=== PATIENT | female | born 1980 | race Caucasian/White ===

== ENCOUNTER 2019-03-09 10:19 | Day surgery (SDC) | payer BC, SELFPAY ==
--- NOTE | 2019-02-24 10:48 | HP.PCM_ITS ---
History and Physical Date of Admission: 02/24/19 Pre-Op History and Physical ? HPI: The patient is a 38 year old female presenting for pre-operative visit. She is scheduled for?Hysteroscopy D&C?with Mirena insertion?and Laparosocpy?with left salpingo-oophorectomy and right salpingectomy, for?chronic left lower quadrant pain, menorrhagia and dysmenorrhea on?03/09/19. ??Procedure discussed along with risks, benefits and complications. ?Other alternatives discussed for management. Consent form signed??Yes.? PAST?MEDICAL?HISTORY PAST MEDICAL HISTORY Diagnosis Date ? Bipolar Affective Disorder 06/10/2009 ? Daytime hypersomnolence 05/30/2015 ? Depression ? ? H/O total thyroidectomy 05/28/2014 ? Hyperthyroidism 05/09/2014 ? Thyroid scan in 04/2014 showed large cold defect in left lobe, homogeneous uptake otherwise but only 2% at 24 hours. ? Medication overuse headache 08/05/2016 ? Multinodular goiter 04/17/2014 ? Thyroid ultrasound 04/03/2014 showed numerous tiny (4-5 mm each) nodules within the right lobe. ?Left lobe shows a 4.0 x 2.0 x 2.0 cm predominantly solid mass. Either within or possibly extraneous to the posterior lower pole aspect of the left lobe is an 8 mm circumscribed hypoechoic solid nodule. ? MVP (mitral valve prolapse) ? ? Postsurgical hypothyroidism 05/08/2014 ? Thyroid cancer (HCC) 06/06/2014 ? multifocal micropapillary, no 131-iodine needed ? Tibialis posterior tendinitis 05/10/2012 ? ? PAST?SURGICAL?HISTORY PAST SURGICAL HISTORY Procedure Laterality Date ? ; THYROIDECTOMY TOTAL OR COMPLETE ? 05/2014 ? PAST SURGICAL HISTORY OF ? ? ? cardiac ablasion ? RECONSTRUCTION PLATE OF NASAL BONES ? 1994 ? SHLDR ARTHROSCOP,PART ACROMIOPLAS Right 12/28/2018 ? Right shoulder arthroscopy with subacromial decompression ? TONSILLECTOMY HX ? ? ? TUBAL LIGATION, ? 06/2006 ? UMBILICAL HERNIA REPAIR 5 OR OLDER ? 1999 ? ? CURRENT?MEDICATIONS Current Outpatient Medications Medication Sig Dispense Refill ? buPROPion XL (WELLBUTRIN XL) 150 mg 24 hr tablet Take 1 tablet by mouth once daily. 30 tablet ? ? acetaminophen (TYLENOL EXTRA STRENGTH) 500 mg tablet Take 1,000 mg by mouth every 8 hours as needed. ? ? ? lamoTRIgine (LAMICTAL) 100 mg tablet once daily. ? 0 ? topiramate (TOPAMAX) 100 mg tablet Take 1 tablet by mouth twice daily. 60 tablet 5 ? SUMAtriptan (IMITREX STATDOSE PEN) 6 mg/0.5 mL kit 1 injection at migraine onset. May repeat once in 2 hours. Give max allowed per insurance. 8 Each 5 ? levothyroxine (SYNTHROID) 150 mcg tablet Take 1 tablet by mouth once daily. 90 tablet 3 ? ALPRAZolam (XANAX) 0.5 mg tablet Take 1 tablet by mouth twice daily as needed. (Patient taking differently: Take 0.25 mg by mouth twice daily as needed for Anxiety. ) 30 tablet 0 ? No current facility-administered medications for this visit.? ? ALLERGIES:?Bactrim [Sulfamethoxazole-Trimethoprim]; Codeine; Darvocet-N 100 [Propoxyphene N-Acetaminophen]; Latex ? PERSONAL HISTORY:? SOCIAL?HISTORY Social History ??Socioeconomic History ?Marital status: ?Spouse name: Francisco ?Number of children: 3 ?Years of education: 12 ?Highest education level: Not on file ??Occupational History ?Occupation: Homemaker ??Social Needs ?Financial resource strain: Not on file ?Food insecurity: ?Worry: Not on file ?Inability: Not on file ?Transportation needs: ?Medical: Not on file ?Non-medical: Not on file ??Tobacco Use ?Smoking status: Former Smoker ?Packs/day: 0.50 ?Types: Cigarettes ?Quit date: 05/21/2014 ?Years since quittin.7 ?Smokeless tobacco: Never Used ?Tobacco comment: no longer smoking. ??Substance and Sexual Activity ?Alcohol use: No ?Drug use: No ?Sexual activity: Yes ?Partners: Male ? control/protection: Tubal Ligation ??Lifestyle ?Physical activity: ?Days per week: Not on file ?Minutes per session: Not on file ?Stress: Not on file ??Relationships ?Social connections: ?Talks on phone: Not on file ?Gets together: Not on file ?Attends latter day service: Not on file ?Active member of club or organization: Not on file ?Attends meetings of clubs or organizations: Not on file ?Relationship status: Not on file ?Intimate partner violence: ?Fear of current or ex partner: Not on file ?Emotionally abused: Not on file ?Physically abused: Not on file ?Forced sexual activity: Not on file ??Other Topics ?Concerns: ? Service: Not Asked ?Blood Transfusions: Not Asked ?Caffeine Concern: Yes ?Occupational Exposure: Not Asked ?Hobby Hazards: Not Asked ?Sleep Concern: Not Asked ?Stress Concern: Not Asked ?Weight Concern: Not Asked ?Special Diet: No ?Back Care: Not Asked ?Exercise: No ?Bike Helmet: Not Asked ?Seat Belt: Not Asked ?Self-Exams: Not Asked ??Social History Narrative ?Not on file ? FAMILY HISTORY:? FAMILY?HISTORY FAMILY HISTORY Problem Relation Age of Onset ? Thyroid Mother ?cancer ? Clotting Disorder Mother ?pulmonary emboli in 2011 ? Asthma Mother ? ? other (Migraine) Mother ?Possible ? No Known Problems Father ? ? other (Migraine) Sister ?Half-sister ? Asthma Sister ? ? Hearing Loss Maternal Grandmother ? ? Asthma Maternal Grandmother ? ? Heart Maternal Grandfather ? ? Cancer Maternal Grandfather ? ? other (Migraine) Daughter ? ? Asthma Brother ? ? Asthma Son ?As an ? REVIEW OF SYMPTOMS: GENERAL: denies fevers or chills ENDOCRINOLOGY: has not been on steroids Cardiology : denies palpitations or chest pain Respiratory: denies SOB or cough Hematology: denies history of prolonged bleeding or easy bruising or VTE Allergy: Denies history of personal or family history of allergy to anesthesia ? ? PHYSICAL EXAMINATION: ? VITALS:?Blood pressure 118/68, height 5' 5.5 (1.664 m), weight 197 lb (89.4 kg), last menstrual period 01/30/2019. ? GENERAL:??The patient is well nourished, well hydrated in no acute distress. ?, The patient is oriented to time, place, and person. NECK:?Supple. No lynphadenopathy, normal thyroid, no thyromegaly. LUNGS:?Clear to auscultation bilaterally. no wheezes, rhonchi or rales HEART:?Regular rate and rhythm, Normal heart sounds and No murmurs or gallops ? ? IMPRESSION:?Menorrhagia, dysmenorrhea, chronic left lower quadrant and pelvic pain ? PLAN:???The risks/benefits/alternatives and personal involved for the kevin nned?laparoscopic left salpingo-oophorectomy, right salpingectomy, hysteroscopy with dilation and curettage and Mirena IUD insertion?were reviewed with the patient. Her questions were answered to her satisfaction and she desires to proceed. ?Consent was signed. ?I reviewed with her postop instructions and expectations. ? ? I have reviewed and updated past medical and surgical history, medications and allergies?. this history and physical was completed in my office on February 24, 2018.
[2019-03-09] VITALS (8 sets, daily range): BP systolic 115–132; BP diastolic 77–97; PULSE 70–103; RESP 16; TEMP 36.1–37.2; O2SAT 95–100; BMI 33.3
--- NOTE | 2019-03-09 | OV_PTH ---
PATIENT: MATT PAIGE LOC: [facility] [place] U#:[id number] AGE/SX: 38/F ROOM: RE03/09/[address]: Dr. Rachel Barajas MD : [id number] BED: DIS: 03/09/2019 SPEC #: [id number] RECD: 03/09/19 16:26 STATUS: BLAKE ANGEL #: [id number] ABRAHAM: 03/09/19 00:[address]: Rachel Barajas DEPT: SURGICAL PATHOLOGY RECD BY: Gabriel Ronquillo ENTERED: 03/10/19 09:13 SP TYPE: OVARY OTHR DR: Kim Momin, GAS STATION SERVICE ATTENDANT-C Tissues: Left ovary Procedures: Surgery Specimen Level IV HEADER OPERATION: Diagnostic laparoscopy, left salpingo-oophorectomy, right salpingectomy PRE-OP DIAGNOSIS: Menorrhagia, dysmenorrhea, chronic left lower quadrant and pelvic pain TISSUE SUBMITTED: Left ovary, right tube MICROSCOPIC DIAGNOSIS Bilateral fallopian tubes and left ovary, left salpingo-oophorectomy and right salpingectomy: Bilateral fallopian tube - no pathologic diagnosis. Left ovary - physiologic follicular cysts. SONG:jesus 03/13/19 MICROSCOPIC DESCRIPTION Slides are reviewed. GROSS DESCRIPTION Received in fixative is one container labeled with the patient's name and designated left ovary and right tube. The specimen consists of one fallopian tube identified as right tube and second fallopian tube and ovary identified as left. The right fallopian tube measures 4 cm in length and 0.6 cm in diameter. The fimbrial end is identified. Sections reveal unremarkable cut surfaces. The left ovary measures 3 x 2 x 2 cm. Sections reveal multiple cysts filled with clear fluid. The largest cyst measures 1.5 cm in greatest dimension. The adjacent left fallopian tube measures 5 cm in length and 0.6 cm in diameter. The fimbrial end is identified. Sections reveal unremarkable cut surfaces. Commission Agent Livestock sections are submitted in four cassettes as follows: 1 - right fallopian tube, 2 - left fallopian tube, 3 & 4 - left ovary. / SONG:jesus 03/10/19 TC:5 CPT: 14195 x2
--- NOTE | 2019-03-09 10:32 | EKG12_ITS ---
Test Reason : PRE OP Blood Pressure : / mmHG Vent. Rate : 097 BPM Atrial Rate : 097 BPM P-R Int : 156 ms QRS Dur : 082 ms QT Int : 370 ms P-R-T Axes : 024 012 028 degrees QTc Int : 469 ms Normal sinus rhythm Normal ECG When compared with ECG of 16-JUN-2016 12:05, No significant change was found Confirmed by TOÑO OSMAN [id number]), editorial assistant CHERYL HAMILTON ([id number]) on 03/14/2019 1:32:40 PM Referred By: Rachel Barajas Confirmed By:TOÑO OSMAN
[2019-03-09 10:46] LABS: Hematocrit 39.4 % (37-47); Hemoglobin 12.5 g/dL (12.0-15.0); Mean Corp Hgb Conc 31.7 g/dL (32-36); Mean Corpuscular Hgb 29.3 pg (27.0-32.0); Mean Corpuscular Volume 92.3 fL (81-99); Mean Platelet Vol. 9.3 fl (6.2-12.0); Platelet Count 318 K/mm3 (150-450); RBC Distribution Width SD 43.8 fl (35.1-43.9); Red Blood Count 4.27 M/mm3 (4.2-5.4); White Blood Count 7.9 K/mm3 (4.4-11.0)
[2019-03-09 10:49] LABS: Internal QC Validated? YES +Cl - CLEAR BKGD
[2019-03-09 10:50] LABS: Pregnancy, Urine Negative Negative
[2019-03-09] MEDS: Lactated Ringers 1,000 ML 100 ML IV ×2 (11:07→12:15)
[2019-03-09] MEDS: Acetaminophen 500 MG Tablet 1000 MG PO (11:13)
[2019-03-09] MEDS: Celecoxib 200 MG Capsule PO (11:13)
[2019-03-09] MEDS: Gabapentin 400 MG Capsule PO (11:13)
[2019-03-09 11:14] LABS: Anion Gap 5 (5-15); BUN 11 mg/dL (7-18); BUN/Creat Ratio 11.6 RATIO (10-20); Calcium,Total 8.7 mg/dL (8.5-10.1); Chloride 111 mmol/L (98-107); Creatinine, Serum 0.95 mg/dL (0.55-1.02); EST Glomerular Filtration Rate 70 mL/min (>60); Est Glom Filt Rate - Afr Amer 84 mL/min (>60); Estimated Creatinine Clearance 68.65 ml/min; Glucose 98 mg/dL (74-106); Potassium 3.5 mmol/L (3.5-5.1); Sodium Level 139 mmol/L (136-145); Thyroid Stim Hormone (TSH) 0.88 uIU/mL (0.358-3.74)
[2019-03-09] MEDS: Bupivacaine Mpf 0.5% 30 ML VIAL (12:30)
--- NOTE | 2019-03-09 13:23 | PCM.DC.D&C ---
Discharge Diet: No Restrictions Discharge Activity: Return to Normal Activity, May Shower - 03/10/19, May Take a Tub Bath - in 2 weeks. Call your doctor if your incision/area has: Sudden Increased Bleeding, Foul Smelling Discharge, Swelling at the incision site Call your doctor if you observe: Fever of 101 or Higher, Uncontrolled pain Cleanse incision/area with: Soap & Water, - - your incisions have skin glue, it can get wet Instructions: Hysteroscopy Allergies/Adverse Reactions: Allergies adhesive Allergy (Verified 03/09/19 10:58) Itching codeine Allergy (Verified 03/09/19 10:58) Hives propoxyphene napsylate [From Darvocet-N] Allergy (Verified 03/09/19 10:58) Hives sulfamethoxazole [From Bactrim] Allergy (Verified 03/09/19 10:58) Hives trimethoprim [From Bactrim] Allergy (Verified 03/09/19 10:58) Hives Medications to take at Discharge ALPRAZolam [Xanax] 0.5 mg PO DAILY PRN PRN 05/21/14 Levothyroxine Sodium [Levoxyl] 150 mcg PO DAILY 05/21/14 Cholecalciferol (Vitamin D3) [Vitamin D3] 50,000 unit PO QWEEK 03/07/19 Lamotrigine [Lamictal] 200 mg PO QHS 03/07/19 Sumatriptan [Imitrex] 6 mg SUBCUT .X1 PRN 03/07/19 Topiramate [Topamax] 200 mg PO QHS 03/07/19 buPROPion SR [Wellbutrin SR (150mg tablets)] 150 mg PO QHS 03/07/19 Ibuprofen [Motrin] 600 mg PO Q6H PRN #60 tab 03/09/19 Oxycodone HCl/Acetaminophen [Percocet 5/325] 1 - 2 tablet PO Q8 PRN 4 Days #14 tablet 03/09/19 The following prescriptions were given: Ibuprofen [Motrin] 600 mg PO Q6H PRN #60 tab PRN Reason: Pain Transmission Status: Pending to [facility] Oxycodone HCl/Acetaminophen [Percocet 5/325] 1 - 2 tablet PO Q8 PRN 4 Days #14 tablet PRN Reason: Pain Transmission Status: Sent to [facility] Primary Care Physician: Kim Momin NP-C [Primary Care Provider] - Test Results: Test results from this visit will be discussed in further detail at your follow-up appointment, if applicable. Please Follow Up With: Rachel Barajas MD - [phone] When: 2 weeks or as needed
--- NOTE | 2019-03-09 13:27 | OP.PCM_ITS ---
Report of Operation Date of Procedure: 03/09/19 Pre-Operative Diagnosis: pelvic pain, dysmenorrhea Post-Operative Diagnosis: same, + retroverted, retroflexed uterus Surgery/Procedure Performed:: hysteroscopy, laparascopic right salpingoophorectomy, left salpingectomy Description of Surgical Findings:: reverted retroflexed uterus, normal-appearing cervix and vagina, normal- appearing ovaries bilaterally. Normal-appearing tubes except for previous evidence of tubal ligation from Filshie clips was noted. No significant adhesions or endometriosis. The uterus was so retroflexed that the fundus was essentially sitting on the posterior lower uterine segment. discharging machine operator: Kraig Smith student Type of Anesthesia:: General Anesthesiologist: Alison Briggs Special Medications: none Specimen's removed: Bilateral fallopian tubes, right ovary Drains: None Estimated Blood Loss (mL): 20 Fluids Replaced: 600 Description of Procedure: The patient was taken to the operating room where she was prepped and draped in the dorsolithotomy position. A weighted speculum was placed in the vagina and the anterior lip of the cervix was grasped with a tenaculum. The conn cannula uterine manipulator was placed and the remainder of the instruments were removed from the vagina. Attention was turned to the abdomen. All port sites were infiltrated with 0.5% Marcaine before skin incisions were made. A 5 mm intraumbilical incision was made. The anterior abdominal wall was tented up with 2 towel clamps while a 5 mm blade less trocar and sleeve were directly inserted. Intraperitoneal placement was confirmed with the laparoscope. The pneumoperitoneum was created and the underlying abdominal contents were intact. The patient was placed in Trendelenburg. Right and left lower quadrant ports were placed under direct visualization lateral to the inferior epigastric vessels. The bowel was swept away and the above findings were noted. The LigaSure device was used to clamp seal and transect the antimesenteric portions of the right tube to the cornual insertion of the uterus. The right tube was amputated from the uterus and the pedicles were all confirmed to be hemostatic. The left infundibulopelvic ligament was clamped, sealed and transected with the LigaSure device. I then clamped along drain ligament with the LigaSure, it was clamped, sealed and transected. I met at the tube pedicles, and the fallopian tube and ovary were amputated from the uterus. Umbilical port site was stretched and an Endo Catch bag was placed through the port site and the specimen was placed inside. It was brought out through the umbilical port site. The fascia and this site was closed with an 0 Vicryl [id number] suture. The pedicles were again examined and found to be hemostatic. The lateral ports were removed under direct visualization and no active bleeding was noted. The pneumoperitoneum was released. The skin incisions were closed with Monocryl suture in a subcuticular fashion and skin glue. The vaginal instruments were removed and the vaginal sweep was completed by me. The weighted speculum was placed in the vagina and the anterior lip of the cervix was grasped with a single-tooth tenaculum. An attempt was made to carefully dilate the cervix knowing that the uterus was retroverted and retroflexed. However, despite this, when the hysteroscope was placed it was in a false cavity. I attempted to reposition it. I then removed it and attempted to dilate further, at which point of suspicious they perforated the uterus. I placed the hysteroscope in and found that I had perforated the uterus. The hysteroscope was then removed and the procedure was terminated. All sponge and needle counts were correct. Vaginal sweep was performed by me. The patient was awakened and taken to the recovery room in stable condition. I performed the entire procedure with assistance Hysteroscopic ins: 300cc normal saline Hysteroscopic outs:100cc Findings: Endometrial cavity: Able to be definitively identified Cervix: Normal Vagina: Normal Grafts/Implants Used: none - Complications none - Admit VTE Documentation VTE Present on Admission: No VTE Mechan Device Prophylaxis: SCD's Reason prophylaxis not ordered:: Procedure Not Indicated
[2019-03-09] MEDS: Morphine 4 MG/ML Syringe 6 MG IV (15:20)
== END 2019-03-09 16:06 | disposition home or self-care (01) ==
LOC: SDC 10:20 → AC 10:22
PROVIDERS: Anesthesiology; Family Provider Nurse Practitioner Family; PCP Nurse Practitioner Family; Referring Provider Obstetrics & Gynecology; Visit Provider Obstetrics & Gynecology
PROC: (CPT 49320; principal; 2019-03-09 11:40)
PROC: 0U5B8ZZ Destruction of Endometrium, Via Natural or Artificial Opening Endoscopic (ICD-10-PCS; CPT 58558; 2019-03-09 11:40)
DX: N92.0 Excessive and frequent menstruation with regular cycle (principal); N94.6 Dysmenorrhea, unspecified; I34.1 Nonrheumatic mitral (valve) prolapse; E89.0 Postprocedural hypothyroidism; F31.9 Bipolar disorder, unspecified; F41.9 Anxiety disorder, unspecified; G47.10 Hypersomnia, unspecified; Z79.899 Other long term (current) drug therapy; Z88.2 Allergy status to sulfonamides; Z88.5 Allergy status to narcotic agent; Z85.850 Personal history of malignant neoplasm of thyroid; Z87.891 Personal history of nicotine dependence
CPT/HCPCS: 58661; 36415; 80048; 81025; 84443; 85027; 88305; 93005; J7120; J2405

== ENCOUNTER 2019-04-13 06:10 | Day surgery (SDC) | payer BC, SELFPAY ==
[2019-03-09 10:59] VITALS: BMI 33.3
--- NOTE | 2019-04-08 09:03 | PCM.HP.BLA ---
History and Physical Date of Admission: 04/13/19 HPI: The patient is a 38 year old female presenting for pre-operative visit. She is scheduled for?TVH??, for?menorrhagia, retroflexed uterus and pelvic pain on?04/13/19. ??Procedure discussed along with risks, benefits and complications. ?Other alternatives discussed for management. Consent form signed??Yes.? PAST?MEDICAL?HISTORY PAST MEDICAL HISTORY Diagnosis Date ? Bipolar Affective Disorder 06/10/2009 ? Daytime hypersomnolence 05/30/2015 ? Depression ? ? H/O total thyroidectomy 05/28/2014 ? Hyperthyroidism 05/09/2014 ? Thyroid scan in 04/2014 showed large cold defect in left lobe, homogeneous uptake otherwise but only 2% at 24 hours. ? Medication overuse headache 08/05/2016 ? Multinodular goiter 04/17/2014 ? Thyroid ultrasound 04/03/2014 showed numerous tiny (4-5 mm each) nodules within the right lobe. ?Left lobe shows a 4.0 x 2.0 x 2.0 cm predominantly solid mass. Either within or possibly extraneous to the posterior lower pole aspect of the left lobe is an 8 mm circumscribed hypoechoic solid nodule. ? MVP (mitral valve prolapse) ? ? Postsurgical hypothyroidism 05/08/2014 ? Thyroid cancer (HCC) 06/06/2014 ? multifocal micropapillary, no 131-iodine needed ? Tibialis posterior tendinitis 05/10/2012 ? ? PAST?SURGICAL?HISTORY PAST SURGICAL HISTORY Procedure Laterality Date ? ; THYROIDECTOMY TOTAL OR COMPLETE ? 05/2014 ? HYSTEROSCOPY, DIAGNOSTIC (SEPARATE ? 03/09/2019 ? False tract, then perforation due to shape of uterus ? L'SCOPE REM ADNEX W/PART/TOT OOPH/SALP Left 03/09/2019 ? LSO, right salpingectomy ? PAST SURGICAL HISTORY OF ? ? ? cardiac ablasion ? RECONSTRUCTION PLATE OF NASAL BONES ? 1994 ? SHLDR ARTHROSCOP,PART ACROMIOPLAS Right 12/28/2018 ? Right shoulder arthroscopy with subacromial decompression ? TONSILLECTOMY HX ? ? ? TUBAL LIGATION, ? 06/2006 ? UMBILICAL HERNIA REPAIR 5 OR OLDER ? 2000 ? ? CURRENT?MEDICATIONS Current Outpatient Medications Medication Sig Dispense Refill ? norethindrone (AYGESTIN) 5 mg tablet Take 1 tablet by mouth as directed. ONE PO Q 1 HR UNTIL BLEEDING SLOWS, UP TO 5 TABS TODAY. ?THEN ONE PO QID X 3 DAYS THEN TID X 3 DAYS THEN BID X 3 DAYS THEN ONE QDAY. 40 tablet 1 ? Mefenamic Acid 250 mg cap Take 1 capsule by mouth as directed. take 2 tablets at onset of pain then one tablet q 8 hrs as needed for pain 30 capsule 1 ? buPROPion XL (WELLBUTRIN XL) 150 mg 24 hr tablet Take 1 tablet by mouth once daily. 30 tablet ? ? acetaminophen (TYLENOL EXTRA STRENGTH) 500 mg tablet Take 1,000 mg by mouth every 8 hours as needed. ? ? ? lamoTRIgine (LAMICTAL) 100 mg tablet once daily. ? 0 ? topiramate (TOPAMAX) 100 mg tablet Take 1 tablet by mouth twice daily. 60 tablet 5 ? SUMAtriptan (IMITREX STATDOSE PEN) 6 mg/0.5 mL kit 1 injection at migraine onset. May repeat once in 2 hours. Give max allowed per insurance. 8 Each 5 ? levothyroxine (SYNTHROID) 150 mcg tablet Take 1 tablet by mouth once daily. 90 tablet 3 ? ALPRAZolam (XANAX) 0.5 mg tablet Take 1 tablet by mouth twice daily as needed. (Patient taking differently: Take 0.25 mg by mouth twice daily as needed for Anxiety. ) 30 tablet 0 ? No current facility-administered medications for this visit.? ? ALLERGIES:?Bactrim [Sulfamethoxazole-Trimethoprim]; Codeine; Darvocet-N 100 [Propoxyphene N-Acetaminophen]; Latex ? PERSONAL HISTORY:? SOCIAL?HISTORY Social History ??Socioeconomic History ?Marital status: ?Spouse name: Francisco ?Number of children: 3 ?Years of education: 12 ?Highest education level: Not on file ??Occupational History ?Occupation: Homemaker ??Social Needs ?Financial resource strain: Not on file ?Food insecurity: ?Worry: Not on file ?Inability: Not on file ?Transportation needs: ?Medical: Not on file ?Non-medical: Not on file ??Tobacco Use ?Smoking status: Former Smoker ?Packs/day: 0.50 ?Types: Cigarettes ?Quit date: 05/21/2014 ?Years since quittin.8 ?Smokeless tobacco: Never Used ?Tobacco comment: no longer smoking. ??Substance and Sexual Activity ?Alcohol use: No ?Drug use: No ?Sexual activity: Yes ?Partners: Male ? control/protection: Tubal Ligation ??Lifestyle ?Physical activity: ?Days per week: Not on file ?Minutes per session: Not on file ?Stress: Not on file ??Relationships ?Social connections: ?Talks on phone: Not on file ?Gets together: Not on file ?Attends samaritan service: Not on file ?Active member of club or organization: Not on file ?Attends meetings of clubs or organizations: Not on file ?Relationship status: Not on file ?Intimate partner violence: ?Fear of current or ex partner: Not on file ?Emotionally abused: Not on file ?Physically abused: Not on file ?Forced sexual activity: Not on file ??Other Topics ?Concerns: ? Service: Not Asked ?Blood Transfusions: Not Asked ?Caffeine Concern: Yes ?Occupational Exposure: Not Asked ?Hobby Hazards: Not Asked ?Sleep Concern: Not Asked ?Stress Concern: Not Asked ?Weight Concern: Not Asked ?Special Diet: No ?Back Care: Not Asked ?Exercise: No ?Bike Helmet: Not Asked ?Seat Belt: Not Asked ?Self-Exams: Not Asked ??Social History Narrative ?Not on file ? FAMILY HISTORY:? FAMILY?HISTORY FAMILY HISTORY Problem Relation Age of Onset ? Thyroid Mother ?cancer ? Clotting Disorder Mother ?pulmonary emboli in 2012 ? Asthma Mother ? ? other (Migraine) Mother ?Possible ? No Known Problems Father ? ? other (Migraine) Sister ?Half-sister ? Asthma Sister ? ? Hearing Loss Maternal Grandmother ? ? Asthma Maternal Grandmother ? ? Heart Maternal Grandfather ? ? Cancer Maternal Grandfather ? ? other (Migraine) Daughter ? ? Asthma Brother ? ? Asthma Son ?As an infant ? REVIEW OF SYMPTOMS: GENERAL: denies fevers or chills ENDOCRINOLOGY: has not been on steroids Cardiology : denies palpitations or chest pain Respiratory: denies SOB or cough Hematology: denies history of prolonged bleeding or easy bruising or VTE Allergy: Denies history of personal or family history of allergy to anesthesia ? ? PHYSICAL EXAMINATION: ? VITALS:?Weight 197 lb (89.4 kg), last menstrual period 03/13/2019. ? GENERAL:??The patient is well nourished, well hydrated in no acute distress. ?, The patient is oriented to time, place, and person. NECK:?Supple. No lynphadenopathy, normal thyroid, no thyromegaly. LUNGS:?Clear to auscultation bilaterally. no wheezes, rhonchi or rales HEART:?Regular rate and rhythm, Normal heart sounds and No murmurs or gallops ? ? IMPRESSION:?menorrhagia, chronic pelvic pain, retroflexed uterus ? PLAN:???The risks/benefits/alternatives and personal involved for the planned?TVH?were reviewed with the patient. Her questions were answered to her satisfaction and she desires to proceed. ?Consent was signed. ?I reviewed with her postop instructions and expectations. ? ? I have reviewed and updated past medical and surgical history, medications and allergies. This history and physical was completed in my office on 04/07/2019. Rachel Barajas M.D.
[2019-04-13] VITALS (11 sets, daily range): BP systolic 98–122; BP diastolic 47–81; PULSE 72–106; RESP 12–20; TEMP 36.7–37.1; O2SAT 20–100; BMI 33.3
--- NOTE | 2019-04-13 | HYST_PTH ---
PATIENT: MATT PAIGE LOC: [facility] [place] U#:[id number] AGE/SX: 38/F ROOM: RE04/13/[address]: Dr. Rachel Barajas MD : [id number] BED: DIS: 04/14/2019 SPEC #: [id number] RECD: 04/13/19 12:54 STATUS: BLAKE ANGEL #: [id number] ABRAHAM: 04/13/19 00:[address]: Rachel Barajas DEPT: SURGICAL PATHOLOGY RECD BY: Gabriel Ronquillo ENTERED: 04/13/19 12:54 SP TYPE: HYSTERECT MEAGAN DR: Kim Momin, STUDENT UNION CONSULTANT-C Tissues: Uterus, NOS Procedures: Surgery Specimen Level V HEADER OPERATION: ERAS, vaginal hysterectomy PRE-OP DIAGNOSIS: Menorrhagia, retroflexed uterus and pelvic pain TISSUE SUBMITTED: Uterus and cervix MICROSCOPIC DIAGNOSIS Uterus and cervix, vaginal hysterectomy: Cervix - chronic inflammation Endometrium - secretory endometrium. Myometrium - focal minimal superficial adenomyosis. SJ:jesus 04/14/19 MICROSCOPIC DESCRIPTION Slides are reviewed. GROSS DESCRIPTION Received in fixative is one container labeled with the patient's name and designated uterus. The specimen consists of a uterus with attached cervix without fallopian tubes and ovaries measuring 9.5 x 5 x 4.5 cm and weighing 108 gm. The ectocervix is grossly unremarkable. The cervical os is fish[place] in contour. Instrumentation garland are identified in the anterior and posterior surfaces. The endocervical canal measures 4 cm in length and is grossly unremarkable. The triangular endometrial cavity measures 3.8 x 3.2 cm. The velvety, light kim endometrium measures up to 0.2 cm in thickness. The myometrium measures 2.5 cm in average thickness and is free of mass lesions. Video Conference Specialist sections are submitted in six cassettes as follows: 1 - anterior cervix, 2 - posterior cervix, 3 & 4 - anterior uterine wall, 5 & 6 - posterior uterine wall. / AM:jesus 04/13/19 TC:5 CPT: 73842
[2019-04-13] MEDS: Acetaminophen 500 MG Tablet 1000 MG PO ×3 (07:06→17:31)
[2019-04-13] MEDS: Scopolamine 1mg/72hr Patch 1 PATCH TRANSDERM. (07:07)
[2019-04-13] MEDS: Phenazopyridine 95 MG Tablet 190 MG PO (07:07)
[2019-04-13] MEDS: Gabapentin 600 MG Tablet PO (07:07)
[2019-04-13] MEDS: Celecoxib 200 MG Capsule 400 MG PO (07:07)
[2019-04-13] MEDS: Magnesium Sulfate 4gm/100mL 4 GM/100 ML IV.SOLN. IV (07:11)
[2019-04-13] MEDS: Lactated Ringers 1,000 ML 40 ML IV ×2 (07:15→10:04)
[2019-04-13] MEDS: dexAMETHasone 10 MG/ML Vial 8 MG IV (07:20)
[2019-04-13] MEDS: Enoxaparin 40 MG/0.4 ML Syringe SC (07:24)
[2019-04-13 07:46] LABS: Bedside Glucose 143 mg/dL (70-110)
[2019-04-13] MEDS: Cefazolin 2 GM in 0.9% Normal Saline 100 ML IV (08:16)
--- NOTE | 2019-04-13 09:50 | PCM.OPRPT ---
Report of Operation Date of Procedure: 04/13/19 Pre-Operative Diagnosis: Menorrhagia, dysmenorrhea, chronic pelvic pain, retroverted retroflexed uterus Post-Operative Diagnosis: Same Surgery/Procedure Performed:: Total vaginal hysterectomy with modified Chen's culdoplasty and cystoscopy Description of Surgical Findings:: Normal-appearing cervix, vagina, uterus and right ovary. Normal-appearing bladder. academic department chair: Mariposa Prince Type of Anesthesia:: General Anesthesiologist: Joshua Beebe Special Medications: None Specimen's removed: Uterus and cervix Drains: Lux Estimated Blood Loss (mL): 50 Fluids Replaced: 1000 cc lactated Ringer's Description of Procedure: The patient was taken to the operating room where she was prepped and draped in the normal sterile fashion in the dorsal lithotomy position. A weighted speculum was placed in the vagina and the anterior lip of the cervix was grasped with a Jasmyn clamp. The vaginal epithelium was infiltrated circumferentially around the cervix with 1% Xylocaine solution. An incision was made across the anterior cervix from 3-9 o'clock with a scalpel and the vaginal epithelium was dissected back with blunt and sharp dissection. The anterior colpotomy incision was made sharply. Entry into the anterior cul-de-sac was confirmed by visualization of the uterine fundus. The lower portion of the vagina 3 and 9:00 was clamped with Berry clamps, transected and suture-ligated. A second pedicle was taken on each side which contain the anterior peritoneum and this was clamped, transected and suture-ligated. This contained the uterine arteries and was hemostatic. The uterus was brought out through the anterior colpotomy incision. The utero-ovarian ligaments were clamped, transected and suture-ligated. The left ovary was noted to be absent. The right ovary appeared normal. The uterosacral ligaments and posterior vaginal cuff were clamped with curved Berry clamps, transected and the uterus was removed. The pedicles were secured with 0 Vicryl sutures. A single [id number] was placed in the midline between the 2 pedicles to close the peritoneum of the posterior vaginal cuff. The pedicles were hemostatic. The pedicles were all examined again and found to be hemostatic. At this point a Chen's culdoplasty was done with 2-0 PDS suture. Entering the posterior vaginal cuff the peritoneum was secured reefed across the peritoneum to the right uterosacral ligament, back across the peritoneum to the left uterosacral ligament and back out through the posterior vaginal wall. The vaginal cuff was then reapproximated horizontally with interrupted 0 Vicryl [id number] sutures. The Chen's sutures were tied down. The vaginal cuff was hemostatic and excellent support was noted. The Lux was removed and a cystoscopy was performed. Both ureteral jets were noted. The bladder was normal in appearance. The Lux was left to straight drain. The vaginal sweep was completed by me. All sponge lap and needle counts were correct. Patient was awakened and taken to theher recovery room in stable condition. Grafts/Implants Used: none - Complications none - Admit VTE Documentation VTE Present on Admission: No VTE Mechan Device Prophylaxis: SCD's VTE Pharm Prophylaxis ordered?: Yes
[2019-04-13] MEDS: Ketorolac 30 MG/ML Syringe IV ×2 (12:43→17:28)
[2019-04-13] MEDS: 0.9% Saline Lock 10 ML Syringe IV (12:44)
[2019-04-13] MEDS: Docusate Sodium 100 MG Capsule PO ×2 (12:44→21:29)
[2019-04-13] MEDS: oxyCODONE 5 MG Tablet PO (17:29)
[2019-04-13] MEDS: Lactated Ringers 1,000 ML 70 ML IV (17:33)
[2019-04-13] MEDS: Topiramate 200 MG Tablet PO (21:29)
[2019-04-13] MEDS: buPROPion (SR) 150 MG Tablet.SA PO (21:29)
[2019-04-13] MEDS: lamoTRIgine 100 MG Tablet 200 MG PO (21:29)
[2019-04-14] MEDS: Ketorolac 30 MG/ML Syringe IV ×2 (00:02→05:30)
[2019-04-14] MEDS: Acetaminophen 500 MG Tablet 1000 MG PO ×2 (00:03→07:19)
--- NOTE | 2019-04-14 00:11 | NURSING ---
Attempted to get patient out of bed several times. Pt states I'm so tired and cant get up right now, I am trying to sleep and people keep coming in to wake me up Pt educated on way early ambulation is important. Pt still refusing to get OOB, states she will get up in the morning
[2019-04-14 05:26] VITALS: BP 102/57; PULSE 93; RESP 16; TEMP 37.1; O2SAT 97
[2019-04-14] MEDS: Levothyroxine 150 MCG Tablet PO (05:30)
[2019-04-14 06:45] LABS: Hematocrit 34.7 % (37-47); Hemoglobin 10.9 g/dL (12.0-15.0); Mean Corp Hgb Conc 31.4 g/dL (32-36); Mean Corpuscular Hgb 28.8 pg (27.0-32.0); Mean Corpuscular Volume 91.8 fL (81-99); Mean Platelet Vol. 9.8 fl (6.2-12.0); Platelet Count 243 K/mm3 (150-450); RBC Distribution Width CV 13.3 % (11.6-14.6); RBC Distribution Width SD 45.1 fl (35.1-43.9); Red Blood Count 3.78 M/mm3 (4.2-5.4); White Blood Count 10.3 K/mm3 (4.4-11.0)
[2019-04-14] MEDS: Lactated Ringers 1,000 ML 70 ML IV (07:18)
[2019-04-14 07:50] VITALS: RESP 18; O2SAT 98
--- NOTE | 2019-04-14 10:13 | PCM.PN.OB ---
Subjective: Patient c/o of pain. No vaginal bleeding. Rosenda. small amount of po and denies emesis overnight. - Physical Exam Vitals/I&O's: Vital Signs Temp Pulse Resp BP Pulse Ox 98.7 F 93 18 102/57 L 98 04/14/19 05:26 04/14/19 05:26 04/14/19 07:50 04/14/19 05:26 04/14/19 07:50 Oxygen Flow Rate (L/min) 6 Oxygen Delivery Method Room Air Weight: 88.2 kg Body Mass Index (BMI) 33.3 Intake and Output for Last 24 Hours 04/12/19 04/13/19 04/14/19 23:59 23:59 23:59 Intake Total 2106.33 / 2406.33 1826.33 / 1826.33 Output Total 1425 / 2275 975 / 975 Balance 681.33 / 131.33 851.33 / 851.33 General: Alert, Cooperative, No apparent distress Abdomen: Soft, Non-Distended, Tender - appopriately Extremities: No edema Laboratory Results 04/14/19 06:00: WBC 10.3, RBC 3.78 L, Hgb 10.9 L, Hct 34.7 L, MCV 91.8, MCH 28.8, MCHC 31.4 L, RDW Std Deviation 45.1 H, RDW Coeff of Lincoln 13.3, Plt Count 243, MPV 9.8 Current Medications Acetaminophen (Tylenol) 1,000 mg PO Q6 [facility] Last Admin: 04/14/19 07:19 Dose: 1,000 mg Documented by: Bupropion HCl (Wellbutrin Sr (150mg Tablets)) 150 mg PO QHS [facility] Last Admin: 04/13/19 21:29 Dose: 150 mg Documented by: Docusate Sodium (Colace) 100 mg PO BID [facility] Last Admin: 04/13/19 21:29 Dose: 100 mg Documented by: Enoxaparin Sodium (Lovenox) 40 mg SC DAILY [facility] Sodium Chloride () 250 mls @ 15 mls/hr IV .[id number] PRN PRN Reason: Saline Flush Lactated Ringer's () 1,000 mls @ 70 mls/hr IV .[id number] [facility] Stop: 04/14/19 12:04 Last Admin: 04/14/19 07:18 Dose: 70 mls/hr Documented by: Ketorolac Tromethamine (Toradol) 30 mg IV Q6 [facility] Stop: 04/14/19 18:01 Last Admin: 04/14/19 05:30 Dose: 30 mg Documented by: Lamotrigine (Lamictal) 200 mg PO QHS [facility] Last Admin: 04/13/19 21:29 Dose: 200 mg Documented by: Levothyroxine Sodium (Synthroid) 150 mcg PO DAILY@0600 [facility] Last Admin: 04/14/19 05:30 Dose: 150 mcg Documented by: Magnesium Oxide (Mag-Ox 400) 400 mg PO DAILY PRN PRN PRN Reason: Constipation Nutritional Formula (Lactose Free) (Ensure Enlive) [facility] [place] Last Admin: 04/14/19 07:48 Dose: Not Given Documented by: Ondansetron HCl (Zofran Odt) 4 mg PO Q6H PRN PRN PRN Reason: NAUSEA Oxycodone HCl (Oxyir) 5 - 10 mg PO Q4H PRN PRN PRN Reason: Pain Score 4-10/10 Last Admin: 04/13/19 17:29 Dose: 5 mg Documented by: Prochlorperazine Edisylate (Compazine Iv) 5 mg IV Q4H PRN PRN PRN Reason: VOMITING Sodium Chloride () 10 - 40 ml IV UD PRN PRN Reason: SALINE FLUSH Last Admin: 04/13/19 12:44 Dose: 10 ml Documented by: Sumatriptan Succinate (Imitrex) 6 mg SC X1 ONE Stop: 04/14/19 10:12 Topiramate (Topamax) 200 mg PO QHS [facility] Last Admin: 04/13/19 21:29 Dose: 200 mg Documented by: Medical Necessity - Tobacco Use Smoking Status: Former smoker Assessment/Plan POD#1 s/p TVH Doing well Ambulate urine output improving, hgb appropriate d/c santana, ambulate, d/c home
[2019-04-14] MEDS: Docusate Sodium 100 MG Capsule PO (10:28)
[2019-04-14] MEDS: Enoxaparin 40 MG/0.4 ML Syringe SC (10:28)
--- NOTE | 2019-04-14 10:42 | NURSING ---
This RN called Dr. Barajas's office and notified LUCERO Pena that discharge instructions will need to be entered in computer prior to discharging patient. Notified that discharge order is in just need instructions.
--- NOTE | 2019-04-14 10:46 | PCM.DC.VHY ---
Discharge Diet: No Restrictions Discharge Activity: Return to Normal Activity, May Not Drive - while taking narcotic pain medications., May Shower May shower in (days): 1 May resume sexual activity in: 6-8 weeks Call your doctor if your incision/area has: Continuous Slow Oozing, Sudden Increased Bleeding, Increased Pain/ Swelling, Increased Redness, Foul Smelling Discharge Call your doctor if you observe: Fever of 101 or Higher, Inability to urinate, Inability to have a bowel movement, Using more than one pad per hour Allergies/Adverse Reactions: Allergies adhesive Allergy (Verified 04/13/19 06:39) Itching, Rash, Occas hives codeine Allergy (Verified 04/07/19 08:21) Hives latex Allergy (Verified 04/13/19 06:39) Rash, Occas Hives propoxyphene napsylate [From Darvocet-N] Allergy (Verified 04/07/19 08:21) Hives sulfamethoxazole [From Bactrim] Allergy (Verified 04/07/19 08:21) Hives trimethoprim [From Bactrim] Allergy (Verified 04/07/19 08:21) Hives Medications to take at Discharge ALPRAZolam [Xanax] 0.5 mg PO DAILY PRN PRN 05/21/14 Levothyroxine Sodium [Levoxyl] 150 mcg PO DAILY 05/21/14 Cholecalciferol (Vitamin D3) [Vitamin D3] 50,000 unit PO QWEEK 03/07/19 Lamotrigine [Lamictal] 200 mg PO QHS 03/07/19 Sumatriptan [Imitrex] 6 mg SUBCUT .X1 PRN 03/07/19 Topiramate [Topamax] 200 mg PO QHS 03/07/19 buPROPion SR [Wellbutrin SR (150mg tablets)] 150 mg PO QHS 03/07/19 Ibuprofen [Motrin] 800 mg PO TID PRN PRN #60 tab 04/14/19 Oxycodone HCl/Acetaminophen [Percocet 5/325] 1 - 2 tablet PO Q8 PRN 7 Days #28 tablet 04/14/19 The following prescriptions were given: Ibuprofen [Motrin] 800 mg PO TID PRN PRN #60 tab PRN Reason: Pain Transmission Status: Pending to [facility] Oxycodone HCl/Acetaminophen [Percocet 5/325] 1 - 2 tablet PO Q8 PRN 7 Days #28 tablet PRN Reason: Pain Transmission Status: Pending to [facility] Primary Care Physician: Kim Momin NP-C [Primary Care Provider] - Test Results: Test results from this visit will be discussed in further detail at your follow-up appointment, if applicable. Please Follow Up With: Rachel Barajas MD - [phone] When: 1-2 and 6 weeks
[2019-04-14 11:30] VITALS: BP 108/65; PULSE 78; RESP 16; TEMP 36.9; O2SAT 97
[2019-04-14] MEDS: SUMAtriptan 6 MG/0.5 ML Vial SC (12:04)
== END 2019-04-14 12:50 | disposition home or self-care (01) ==
LOC: SDC 06:23 → AC 06:28 → MS3 04-14 09:41
PROVIDERS: Family Provider Nurse Practitioner Family; PCP Nurse Practitioner Family; Referring Provider Obstetrics & Gynecology; Visit Provider Obstetrics & Gynecology
PROC: (CPT 58260; principal; 2019-04-13 08:10)
DX: N80.0 Endometriosis of uterus (principal); N72 Inflammatory disease of cervix uteri; N92.0 Excessive and frequent menstruation with regular cycle; R10.2 Pelvic and perineal pain; G89.29 Other chronic pain; Z23 Encounter for immunization; I34.1 Nonrheumatic mitral (valve) prolapse; G43.909 Migraine, unspecified, not intractable, without status migrainosus; E04.2 Nontoxic multinodular goiter; K21.9 Gastro-esophageal reflux disease without esophagitis; G47.10 Hypersomnia, unspecified; F31.9 Bipolar disorder, unspecified; F41.9 Anxiety disorder, unspecified; Z79.899 Other long term (current) drug therapy; Z88.2 Allergy status to sulfonamides; Z88.5 Allergy status to narcotic agent; Z85.850 Personal history of malignant neoplasm of thyroid; Z87.891 Personal history of nicotine dependence
CPT/HCPCS: 58270; 36415; 82962; 85027; 88307; 99251; J7040; J7120; 90686; A4216; G0463; J2405; J3030

== ENCOUNTER 2021-08-25 12:10 | Outpatient (CLI) | payer BC, SELFPAY ==
[2021-08-25 12:53] LABS: Absolute Lymphocyte Count 2.52 X10^3/uL (0.83-4.51); Absolute Neutrophil Count 4.9 X10^3/uL (2.0-7.7); Basophil# 0.02 X10^3/uL; Basophil% 0.2 % (0-1); Eosinophils% 4.7 % (0-5); Hematocrit 40.3 % (37-47); Hemoglobin 13.4 g/dL (12.0-15.0); Lymphocyte # 2.52 X10^3/ul (0.83-4.51); Lymphocyte % 29.3 % (19-41); Mean Corp Hgb Conc 33.3 g/dL (32-36); Mean Corpuscular Hgb 28.6 pg (27.0-32.0); Mean Corpuscular Volume 86.1 fL (81-99); Mean Platelet Vol. 9.4 fl (6.2-12.0); Monocyte# 0.73 X10^3/uL; Monocyte% 8.5 % (0-10); NRBC Flagged by Analyzer 0 % (0-5); Platelet Count 448 K/mm3 (150-450); RBC Distribution Width CV 14.2 % (11.6-14.6); RBC Distribution Width SD 44.5 fl (35.1-43.9); Red Blood Count 4.68 M/mm3 (4.2-5.4); White Blood Count 8.6 K/mm3 (4.4-11.0)
== END 2021-08-25 23:59 | disposition home or self-care (01) ==
LOC: LAB 12:13
PROVIDERS: PCP Nurse Practitioner; Referring Provider Internal Medicine Pulmonary Disease; Visit Provider Internal Medicine Pulmonary Disease
DX: J45.909 Unspecified asthma, uncomplicated (principal)
CPT/HCPCS: 36415; 85025

== ENCOUNTER 2021-09-08 21:34 | Emergency (ER) | payer BC, SELFPAY ==
[2021-09-08 21:39] VITALS: BP 136/82; PULSE 81; RESP 16; TEMP 36.9; O2SAT 98; BMI 38.8
--- NOTE | 2021-09-08 22:17 | EKG12_ITS ---
Test Reason : CP Blood Pressure : / mmHG Vent. Rate : 085 BPM Atrial Rate : 085 BPM P-R Int : 128 ms QRS Dur : 074 ms QT Int : 356 ms P-R-T Axes : 013 031 040 degrees QTc Int : 423 ms Sinus rhythm with Premature atrial complexes Nonspecific ST and T wave abnormality Abnormal ECG Confirmed by NATIVIDAD ALVAREZ, NINA ([id number]), newspaper editor MAURY SAINZ ([id number]) on 09/11/2021 11:33:59 AM Referred By: BEAR Confirmed By:NINA HENSON MD
[2021-09-08] MEDS: Aspirin 325 MG Tablet PO (22:22)
--- NOTE | 2021-09-08 22:24 | RAD_ITS ---
INDICATION: chest pain EXAMINATION/TECHNIQUE: X-RAY - XR Chest 2 Views COMPARISON: None. FINDINGS: LUNGS: No consolidation. No pneumothorax. MEDIASTINUM: Unremarkable. CARDIAC SILHOUETTE: Not enlarged. BONES AND SOFT TISSUES: No acute abnormalities. IMPRESSION: Negative chest x-ray. Electronically Signed: Joselin Jackson MD at 22:42 EDT , RAD/Chest PA and Lateral
[2021-09-08 22:35] VITALS: BP 109/66; PULSE 84; RESP 15; O2SAT 97
[2021-09-08 22:35] LABS: Absolute Neutrophil Count 4.8 X10^3/uL (2.0-7.7); Basophil# 0.04 X10^3/uL; Basophil% 0.4 % (0-1); Eosinophil# 0.42 X10^3/uL; Eosinophils% 4.4 % (0-5); Hematocrit 39.4 % (37-47); Hemoglobin 12.9 g/dL (12.0-15.0); Lymphocyte % 36.5 % (19-41); Mean Corp Hgb Conc 32.7 g/dL (32-36); Mean Corpuscular Hgb 28.2 pg (27.0-32.0); Mean Corpuscular Volume 86.2 fL (81-99); Mean Platelet Vol. 9.6 fl (6.2-12.0); Monocyte# 0.79 X10^3/uL; Monocyte% 8.2 % (0-10); NRBC Flagged by Analyzer 0 % (0-5); Neutrophil # 4.81 X10^3/uL (2.7-7.7); Neutrophil % 50.2 % (47-70); Platelet Count 402 K/mm3 (150-450); RBC Distribution Width CV 14.2 % (11.6-14.6); RBC Distribution Width SD 44.7 fl (35.1-43.9); Red Blood Count 4.57 M/mm3 (4.2-5.4); White Blood Count 9.6 K/mm3 (4.4-11.0)
[2021-09-08 22:51] LABS: D-Dimer Quantitative (DVT/PE) 0.56 FEU/ug/m (0.27-0.49)
--- NOTE | 2021-09-08 22:52 | CT_ITS ---
STUDY: CTA CHEST REASON FOR EXAM: Female, 41 years old. chest pain with elevated d-dimer RADIATION DOSAGE (If Supplied By Facility): CTDIvol = ( 8.76 ) mGy, DLP = ( 500.25 ) mGycm TECHNIQUE: The examination was performed with the intravenous administration of IV 100mL Isovue-370. Post-processing of the angiographic images was performed, with multiplanar reformation and 3D reconstruction. Individualized dose optimization techniques were used for this CT. COMPARISON: None. FINDINGS: Normal enhancement of the main pulmonary artery and right and left pulmonary arteries. Normal enhancement of the bilateral peripheral pulmonary arteries. There is no demonstrated pulmonary embolism. Normal thoracic aorta and visualized great vessels. There is no demonstrated aortic dissection. Normal heart and pericardium. Normal mediastinum. Normal hilar regions. Normal visualized trachea and bronchi. The lungs are well expanded. There is a 1 cm pulmonary nodule at the left lower lung field. Fleischner Society recommendations consider repeat CT in 3 months, PET/CT or tissue sampling. Normal pleura. Normal chest wall structures. Normal osseous structures. Normal visualized upper abdomen. CT/CTA Chest W/WO Contrast IMPRESSION: Normal CTA chest examination, without a demonstrated pulmonary embolism or arterial dissection. There is a 1 cm pulmonary nodule at the left lower lung field. Repeat CT in 3 months, PET/CT or tissue sampling recommended Electronically Signed: Ant Kwan MD at 0:22 EDT ,
[2021-09-08 22:57] LABS: Anion Gap 6 (5-15); BUN 23 mg/dL (7-18); BUN/Creat Ratio 21.3 RATIO (10-20); Calcium,Total 8.9 mg/dL (8.5-10.1); Chloride 108 mmol/L (98-107); Creatinine, Serum 1.08 mg/dL (0.55-1.02); EST Glomerular Filtration Rate 59 mL/min (>60); Est Glom Filt Rate - Afr Amer 72 mL/min (>60); Glucose 85 mg/dL (74-106); Potassium 3.5 mmol/L (3.5-5.1); Sodium Level 140 mmol/L (136-145); Troponin-I HS < 3 pg/mL (3.0-54.0)
[2021-09-08] MEDS: 0.9% Normal Saline 1,000 ML 999 ML IV (22:58)
[2021-09-08 23:00] VITALS: BP 104/60; PULSE 86; RESP 15; O2SAT 97
[2021-09-08 23:22] LABS: Prothrombin Time (Protime)PT. 12.1 SECONDS (11.7-14.9)
--- NOTE | 2021-09-09 00:49 | EX.ED.DYSGE1 ---
HPI History of Present Illness Chief Complaint: Chest Pain Narrative Narrative: Patient is a 41-year-old female with past medical history of mitral valve prolapse who states for the past 2 months she has just not felt right. She states that she does have a history of a cardiac ablation because of an abnormal heart rhythm and has stated she has noticed that her heart rate has been dropping low at times. She does states she has an appointment with cardiology coming up in the next week. She states today she was sitting at rest watching TV when she noticed some midsternal chest discomfort and slight shortness of breath. Because of her previous medical history she was concerned and therefore comes in for evaluation. [facility] Medical History (Updated 09/09/21 @ 00:[address] Ajay Mehta, ) Depression Migraines Mitral valve prolapse Home Medications levothyroxine [Levoxyl] 150 mcg PO DAILY 05/21/14 [History Last Taken 04/13/19] topiramate 200 mg PO QHS 03/07/19 [History Last Taken 04/12/19] aripiprazole [Abilify] 10 mg PO DAILY 09/08/21 [History Last Taken Unknown] lamotrigine [Lamictal] 200 mg PO DAILY 09/08/21 [History Last Taken Unknown] propranolol 60 mg PO DAILY 09/08/21 [History Last Taken Unknown] Allergy/AdvReac Type Severity Reaction Status Date / Time adhesive Allergy Itching, Verified 04/13/19 06:39 Rash, Occas hives codeine Allergy Hives Verified 04/07/19 08:21 latex Allergy Rash, Verified 04/13/19 06:39 Occas Hives propoxyphene napsylate Allergy Hives Verified 04/07/19 08:21 [From Darvocet-N] sulfamethoxazole Allergy Hives Verified 04/07/19 08:21 [From Bactrim] trimethoprim [From Bactrim] Allergy Hives Verified 04/07/19 08:21 Social History Smoking Status: Former smoker ROS ROS ED Constitutional Constitutional ED: Denies chills or fever(s) ENT ENT ED: Denies sore throat Cardiovascular Cardiovascular: Reports chest pain Respiratory/Chest Respiratory/Chest: Reports dyspnea; Denies cough Gastrointestinal Gastrointestinal: Denies abdominal pain, diarrhea, nausea or vomiting Genitourinary Genitourinary ED: Denies dysuria Musculoskeletal Musculoskeletal: Denies myalgias Integumentary Denies rash Neurologic Neurologic: Denies headache(s) Hematologic/Lymphatic Hematologic/Lymphatic: Denies easy bleeding or easy bruising EXAM Physical Exam Const Vital Signs: 09/08/21 21:39 09/08/21 22:35 09/08/21 23:00 Temperature 98.4 F Temperature Source Oral Pulse Rate 81 84 86 Respiratory Rate 16 15 15 Blood Pressure 136/82 H 109/66 104/60 Blood Pressure Mean 100 80 74 Pulse Ox 98 97 97 Oxygen Delivery Method Room Air Room Air Room Air 09/09/21 01:03 Temperature Temperature Source Pulse Rate 74 Respiratory Rate 15 Blood Pressure 125/74 H Blood Pressure Mean Pulse Ox 98 Oxygen Delivery Method Positive well nourished and well developed General Appearance ED: well developed Eyes PERRL and EOMs intact bilaterally Neck supple and no JVD Chest Wall palpation of chest normal Resp normal respiratory effort and clear to auscultation bilaterally Cardio regular rate and regular rhythm Rate: other Other Details: Radial pulses are +2-4 bilaterally are equal and symmetric GI normal to inspection, nondistended, normoactive bowel sounds, non-tender, non-distended and no masses Auscultation: normoactive bowel sounds Palpation: soft Extremity normal to inspection Extremity Narrative: No asymmetric edema no pitting edema negative Homans' sign bilaterally Neuro oriented x3 and CN's II-XII intact bilaterally Sensorium / Orientation: alert Motor Exam: strength 5/5 throughout Psych mental status grossly normal Skin no rashes or lesions noted MDM MDM MDM Narrative Medical decision making narrative: Patient presented to the ER with stable vitals and in no respiratory distress. With her report of chest discomfort and shortness of breath I did elect to perform a cardiac work-up. As she states her mother has a history of blood clots I did elect to add a D-dimer on board. Work-up revealed a mildly elevated D-dimer but was otherwise negative. Her initial troponin was less than 3 and therefore there was no need for a delta. Patient had a CTA added because of the elevated D-dimer which also revealed no acute dissection or pulmonary embolus. On reevaluation she is resting comfortably and remains in no acute respiratory distress. Therefore at this time with overall negative work-up and no need for supplemental oxygen patient is safe for discharge Lab Data Attestation: I reviewed the patient's lab results. Labs: Laboratory Results - last 24 hr 09/08/21 09/08/21 09/08/21 21:40 21:40 21:40 WBC 9.6 RBC 4.57 Hgb 12.9 Hct 39.4 MCV 86.2 MCH 28.2 MCHC 32.7 RDW Std Deviation 44.7 H RDW Coeff of Lincoln 14.2 Plt Count 402 MPV 9.6 Immature Gran % (Auto) 0.300 Neut % (Auto) 50.2 Lymph % (Auto) 36.5 [place]hin % (Auto) 8.2 Eos % (Auto) 4.4 Baso % (Auto) 0.4 Absolute Neuts (auto) 4.8 Absolute Lymphs (auto) 3.50 Nucleated RBC % 0 PT INR APTT D-Dimer Quant (PE/DVT) 0.56 H* Sodium 140 Potassium 3.5 Chloride 108 H Carbon Dioxide 26.0 Anion Gap 6 BUN 23 H Creatinine 1.08 H Estim Creat Clear Calc 58.60 Est GFR (MDRD) Af Amer 72 Est GFR (MDRD) Non-Af 59 L BUN/Creatinine Ratio 21.3 H Glucose 85 Calcium 8.9 Magnesium 2.0 Troponin I High Sens < 3 L B-Natriuretic Peptide 09/08/21 09/08/21 21:40 22:58 WBC RBC Hgb Hct MCV MCH MCHC RDW Std Deviation RDW Coeff of Lincoln Plt Count MPV Immature Gran % (Auto) Neut % (Auto) Lymph % (Auto) Dauphin % (Auto) Eos % (Auto) Baso % (Auto) Absolute Neuts (auto) Absolute Lymphs (auto) Nucleated RBC % PT 12.1 INR 1.0 APTT 27.0 D-Dimer Quant (PE/DVT) Sodium Potassium Chloride Carbon Dioxide Anion Gap BUN Creatinine Estim Creat Clear Calc Est GFR (MDRD) Af Amer Est GFR (MDRD) Non-Af BUN/Creatinine Ratio Glucose Calcium Magnesium Troponin I High Sens B-Natriuretic Peptide 16.0 Radiography Diagnostic Testing: Clinical Impression(s) from Imaging Studies Chest X-Ray 09/08/21 22:24 Chest CTA 09/08/21 22:52 IMPRESSION: Normal CTA chest examination, without a demonstrated pulmonary embolism or arterial dissection. There is a 1 cm pulmonary nodule at the left lower lung field. Repeat CT in 3 months, PET/CT or tissue sampling recommended Electronically Signed: Ant Kwan MD at 0:22 EDT , X-ray as interpreted by the emergency medicine physician reveals no acute infiltrate pneumothorax or pleural effusion Discharge Plan Triage Chief Complaint: Chest Pain Other Complaint: Shortness of Breath ED Provider: Ajay Mehta Dx/Rx/DC Orders Clinical Impression: Acute nonspecific chest pain with low risk of coronary artery disease, Mitral valve prolapse Instructions: Mitral Valve Prolapse, ED Chest Pain, Uncertain Cause Prescriptions: No Action levothyroxine [Levoxyl] 100 MCG tablet 150 mcg PO DAILY RF: 0 topiramate 200 MG tablet 200 mg PO QHS RF: 0 lamotrigine [Lamictal] 200 mg Tablet 200 mg PO DAILY RF: 0 propranolol 60 mg Tablet 60 mg PO DAILY RF: 0 aripiprazole [Abilify] 10 mg Tablet 10 mg PO DAILY RF: 0 Primary Care Provider: Ирина Morejon NP Referrals: Ирина Morejon NP, OPERATIONS INTELLIGENCE SUPERINTENDENT-C [Primary Care Provider] - Disposition Disposition: Home, Self Care Discharge Date/Time: 09/09/21 01:03
[2021-09-09 01:03] VITALS: BP 125/74; PULSE 74; RESP 15; O2SAT 98
== END 2021-09-09 01:03 | disposition home or self-care (01) ==
PROVIDERS: Emergency Provider Emergency Medicine; PCP Nurse Practitioner; Visit Provider Emergency Medicine
DX: R07.9 Chest pain, unspecified (principal); I34.1 Nonrheumatic mitral (valve) prolapse; F32.A Depression, unspecified; Z79.899 Other long term (current) drug therapy; Z87.891 Personal history of nicotine dependence
CPT/HCPCS: 71046; 71275; 80048; 83735; 83880; 84484; 85025; 85379; 85610; 85730; 93005; 96360; 96361; 99283; J7030; Q9967; A4216

== ENCOUNTER → 2021-11-11 | Outpatient (CLI) | payer BC, SELFPAY ==
--- NOTE | 2021-11-11 13:02 | ECHOD_ITS ---
Reason For Study: Arrhythmia Procedure This was a 2D Doppler, Color Flow transthoracic echocardiogram. The exam was of adequate technical quality. Exam performed in department. Left Ventricle Normal LV size. Left ventricular systolic function is normal. The estimated ejection fraction is 65 %. The global longitudinal strain = -19 % (normal). No evidence for diastolic dysfunction. No regional wall motion abnormalities noted. Right Ventricle Normal RV size. Normal systolic function. Atria Normal left atrium. Normal right atrium. No doppler evidence for ASD. Mitral Valve There is no mitral annular calcification. Mild mitral valve prolapse. Trivial mitral valve insufficiency. Tricuspid Valve Normal tricuspid valve. Trivial tricuspid valve insufficiency. Right ventricular systolic pressure estimated to be 21 mmHg. Aortic Valve Trisinus/trileaflet aortic valve. Normal aortic valve. Pulmonic Valve The pulmonic valve is not well visualized. Trivial eccentric pulmonic valve insufficiency. Great Vessels Normal sized aortic root. Pericardium/Pleural No pericardial effusion. MMode/2D Measurements & Calculations LVIDd: 4.7 cm IVSd: 0.86 cm Ao root diam: 3.4 cm LVIDs: 3.1 cm LVPWd: 0.75 cm RVDd: 2.9 cm FS: 32.8 % LAV(MOD-bp): 50.4 ml LVAd ap4: 28.3 cm2 LVAd ap2: 26.6 cm2 LAV(MOD-bp) Indexed: 24.7 ml/m2 LVLd ap4: 8.0 cm LVLd ap2: 7.9 cm LAV(MOD-sp2): 46.9 ml EDV(MOD-sp4): 81.1 ml EDV(MOD-sp2): 76.2 ml LAV(MOD-sp4): 44.4 ml EDV(sp4-el): 84.8 ml EDV(sp2-el): 76.3 ml LVAs ap4: 17.1 cm2 LVAs ap2: 16.6 cm2 LVLs ap4: 6.7 cm LVLs ap2: 7.0 cm ESV(MOD-sp4): 36.4 ml ESV(MOD-sp2): 34.0 ml ESV(sp4-el): 37.0 ml ESV(sp2-el): 33.2 ml EF(MOD-sp4): 55.2 % EF(MOD-sp2): 55.4 % EF(sp4-el): 56.4 % SV(MOD-sp4): 44.8 ml SV(MOD-sp2): 42.2 ml SV(sp4-el): 47.8 ml LA dimension(2D): 3.6 cm LA A4 area: 16.7 cm2 RA A4 area: 11.5 cm2 Doppler Measurements & Calculations MV E max akshat: 58.3 cm/sec Lat Peak E' Akshat: 17.3 cm/sec Med Peak E' Akshat: 9.1 cm/sec MV A max akshat: 45.4 cm/sec E/E' lat: 3.4 E/E' med: 6.4 MV E/A: 1.3 Ao V2 max: 123.4 cm/sec LV V1 max: 107.5 cm/sec PA V2 max: 94.9 cm/sec Ao max P.1 mmHg LV V1 max P.6 mmHg TR max akshat: 210.4 cm/sec TR max P.7 mmHg ECHO/Echo Complete Interpretation Summary Left ventricular systolic function is normal. The estimated ejection fraction is 65 %. The global longitudinal strain = -19 % (normal). Mild mitral valve prolapse. Trivial mitral valve insufficiency. Trivial tricuspid valve insufficiency. Trivial eccentric pulmonic valve insufficiency. Right ventricular systolic pressure estimated to be 21 mmHg. No evidence for diastolic dysfunction. Ordering Physician: Jerry Mustafa Referring Physician: Ирина Morejon Performed By: Anat Brown RDCS
== END | disposition home or self-care (01) ==
PROVIDERS: PCP Nurse Practitioner; Visit Provider Internal Medicine Cardiovascular Disease
DX: R06.02 Shortness of breath (principal); R07.9 Chest pain, unspecified; R00.0 Tachycardia, unspecified; I34.1 Nonrheumatic mitral (valve) prolapse; Z98.890 Other specified postprocedural states
CPT/HCPCS: 93306

== ENCOUNTER → 2022-04-08 | Outpatient (CLI) | payer OTHER, SELFPAY ==
--- NOTE | 2022-04-08 13:02 | STRESSREP ---
Stress Test Report Date: 04-08-2022 Procedure: Exercise tolerance test Indications: Shortness of breath/dyspnea on exertion; chest discomfort; palpitations; history of inappropriate sinus tachycardia status post noninvasive/invasive cardiovascular evaluation (EPS/attempted modification of the sinus node) Consent: Per the patient Procedure: The patient exercised on a Ephraim protocol for 3 minutes and 30 seconds completing Stage I and 30 seconds of Stage II achieving a peak heart rate of 160 bpm (89% predicted maximal heart rate) with a resting blood pressure of 110/78 mmHg and a peak blood pressure 132/82 mmHg and a peak MET capacity of approximately 5 MET's. The baseline ECG demonstrated normal sinus rhythm; nonspecific T wave abnormality. The peak exercise ECG demonstrated continued nonspecific T wave abnormality. There were no cardiac dysrhythmias pretest, during exercise, or recovery. The functional capacity was considered decreased. The patient had no complaint of chest discomfort during exercise or recovery. The examination was discontinued secondary to dyspnea. Impression: 1. Technically adequate (percent predicted maximal heart rate greater than 85%) exercise tolerance test 2. Peak exercise ECG with continued nonspecific T wave abnormality 3. There were no cardiac dysrhythmias during exercise or recovery This note was generated with [employer] software. It may contain incorrect words, spelling, and punctuation that were not noted in checking the note before signing.
== END | disposition home or self-care (01) ==
LOC: CVS 12:15
PROVIDERS: PCP Nurse Practitioner; Referring Provider Internal Medicine Cardiovascular Disease; Visit Provider Internal Medicine Cardiovascular Disease
DX: R00.2 Palpitations (principal); R06.02 Shortness of breath; R07.9 Chest pain, unspecified; R00.0 Tachycardia, unspecified; I34.1 Nonrheumatic mitral (valve) prolapse; Z98.890 Other specified postprocedural states
CPT/HCPCS: 93017

== ENCOUNTER → 2024-04-26 | Outpatient (CLI) | payer BC, SELFPAY | END | disposition home or self-care (01) | LOC: PSN 11:56 | PROVIDERS: PCP Internal Medicine; Referring Provider Internal Medicine Cardiovascular Disease; Visit Provider Internal Medicine Cardiovascular Disease | DX: R00.2 Palpitations (principal) | CPT/HCPCS: 93225; 93226 ==

== ENCOUNTER → 2024-07-07 | Outpatient (CLI) | payer BC, SELFPAY ==
--- NOTE | 2024-07-07 12:51 | ECHOD_ITS ---
Reason For Study: DYSPNEA/SOB Procedure This was a 2D Doppler, Color Flow transthoracic echocardiogram. Exam performed in department. Left Ventricle Normal LV size. Left ventricular systolic function is normal. The left ventricular ejection fraction is 55 %. Stage 1 diastolic dysfunction. No regional wall motion abnormalities noted. Right Ventricle Normal RV size. Normal systolic function. Atria Normal left atrium. Normal right atrium. Mitral Valve Normal mitral valve. Tricuspid Valve Normal tricuspid valve. Trivial tricuspid valve insufficiency. Aortic Valve Normal aortic valve. Pulmonic Valve Normal pulmonic valve. Great Vessels Normal aortic root. The pulmonary artery is normal size. Inferior vena cava collapse with respiration. Pericardium/Pleural No pericardial effusion. MMode/2D Measurements & Calculations LVIDd: 4.6 cm IVSd: 0.92 cm Ao root diam: 3.3 cm LVIDs: 3.2 cm LVPWd: 0.83 cm RVDd: 2.6 cm FS: 30.7 % _ LAV(MOD-bp): 27.0 ml LVAd ap4: 25.4 cm2 SV(MOD-sp4): 37.5 ml LAV(MOD-bp) Indexed: 12.6 ml/m2 LVLd ap4: 7.3 cm SI(MOD-sp4): 17.5 ml/m2 LAV(MOD-sp2): 28.6 ml EDV(MOD-sp4): 71.9 ml LAV(MOD-sp4): 24.8 ml EDV(sp4-el): 74.9 ml LVAs ap4: 16.1 cm2 LVLs ap4: 6.3 cm ESV(MOD-sp4): 34.5 ml ESV(sp4-el): 34.9 ml EF(MOD-sp4): 52.1 % EF(sp4-el): 53.3 % _ SV(sp4-el): 39.9 ml LA A4 area: 12.0 cm2 LA dimension(2D): 3.4 cm _ RA A4 area: 10.5 cm2 TAPSE: 1.9 cm Time Measurements MV dec time: 0.13 sec Doppler Measurements & Calculations MV E max akshat: 46.9 cm/sec Lat Peak E' Akshat: 14.0 cm/sec Med Peak E' Akshat: 11.0 cm/sec MV A max akshat: 61.5 cm/sec E/E' lat: 3.4 E/E' med: 4.2 MV E/A: 0.76 _ Ao V2 max: 126.3 cm/sec LV V1 max: 100.5 cm/sec PA V2 max: 84.2 cm/sec Ao max P.4 mmHg LV V1 max P.0 mmHg _ TR max akshat: 219.4 cm/sec TR max P.3 mmHg ECHO/Echo Complete Interpretation Summary Normal LV size. Left ventricular systolic function is normal. The left ventricular ejection fraction is 55 %. Stage 1 diastolic dysfunction. Ordering Physician: Sidney Soto Referring Physician: JOLANTA GRACE Performed By: Alisson Miguel RDCS
== END | disposition home or self-care (01) ==
LOC: CVS 12:50
PROVIDERS: PCP Internal Medicine; Referring Provider Internal Medicine Cardiovascular Disease; Visit Provider Internal Medicine Cardiovascular Disease
DX: R06.09 Other forms of dyspnea (principal)
CPT/HCPCS: 93306